=== PATIENT | female | born 1960 | race Caucasian/White ===

== ENCOUNTER 2018-11-01 13:57 | Outpatient (CLI) | payer MEDICARE, MEDICAID, SELFPAY ==
--- NOTE | 2018-11-01 14:00 | DI.RAD_ITS ---
SYMPTOMS/DIAGNOSIS: CHEST PAIN, R07.9, LEFT BUNDLE BRANCH BLOCK, I44.7; NICOTINE DEPENDENCE, F17.200; RIGHT HIP PAIN, M25.551, S/P TWISTING INJURY 5 MOS AGO PA AND LATERAL CHEST: Breast implants are demonstrated. The lungs are free of infiltrate. There is no evidence of a mass or pleural effusion. The cardiovascular structures are intact. There is a mild rotoscoliotic deformity of the dorsolumbar spine. SUMMARY: No evidence of acute cardiopulmonary disease. RIGHT HIP: The bony structures are intact. There are minimal degenerative changes involving the right hip. The pelvic bones appear intact.
[2018-11-01 14:54] LABS: HCT 47.8 % (36.0-46.0); HGB 16.2 g/dL (12.0-15.5); Mean Corp. HGB Concentration 33.9 g/dL (32.0-36.0); Mean Corpuscular Hemoglobin 32.5 pg (27.0-33.0); Mean Platelet Volume 10.2 fL (8.0-11.0); Platelet Count 258 x1000/uL (130-400); RBC 4.98 m/cumm (4.00-5.20); RBC Distribution Width 11.9 % (11.7-14.6)
[2018-11-01 18:15] LABS: ALT 22 U/L (12-78); AST 13 U/L (15-37); Albumin 4.1 g/dL (3.4-5.0); Alkaline Phosphatase 92 U/L (46-116); Anion Gap 10.8 mmol/L (3-11); BUN 8 mg/dL (7-18); Bilirubin, Total 0.8 mg/dL (0.2-1.0); CO2 28.2 mmol/L (21.0-32.0); CREATININE 0.91 mg/dL (0.55-1.02); Calcium 9.4 mg/dL (8.5-10.1); Chloride 100 mmol/L (98-107); Cholesterol 254 mg/dL (50-200); Glucose 99 mg/dL (70-100); HDL Cholesterol 67 mg/dL (40-60); LDL CHOLESTEROL 163 mg/dL (<100); Potassium 4.2 mmol/L (3.5-5.1); Sodium 139 mmol/L (136-145); Triglyceride 74 mg/dL (30-150)
== END 2018-11-01 14:17 ==
PROVIDERS: PCP Nurse Practitioner; Visit Provider Nurse Practitioner
DX: R07.9 Chest pain, unspecified (principal); I44.7 Left bundle-branch block, unspecified; I47.1 Supraventricular tachycardia; F17.200 Nicotine dependence, unspecified, uncomplicated; M16.11 Unilateral primary osteoarthritis, right hip; Z98.82 Breast implant status; M25.551 Pain in right hip
CPT/HCPCS: 36415; 80053; 80061; 83721; 85027; 71046; 73502

== ENCOUNTER 2018-11-05 08:46 | Outpatient (CLI) | payer MEDICARE, MEDICAID, SELFPAY ==
--- NOTE | 2018-11-05 09:30 | MERGEMPI_ITS ---
*[facility]* *[facility]* [address] [place] [address] Myocardial Perfusion Imaging - SPECT Regadenoson Date of study: 11/05/2018 *PATIENT PRESENTATION* Height: 170.2cm (67in) Blood Pressure: Weight: 50kg (110lb) BSA: 1.52m^2 Referring physician: Bony Westbrook Ordering physician: Tayler Kwon Impressions: - Normal perfusion by Tc99m Sestamibi Imaging. - Abnormal contraction consistent with cardiomyopathy. Summary: 1. Myocardial perfusion imaging: No myocardial perfusion defects noted. 2. The calculated left ventricular ejection fraction after stress: 43%. LV global systolic function is mild to moderately reduced. There is dyskinesis involving the septal wall(s) of the left ventricle. 3. Stress ECG conclusions: The stress ECG is indeterminate due to baseline left bundle branch block. Recommendations: Transthoracic echocardiography should be performed in order to evaluate LV function. Indication: R07.9, Appropriate Use Criteria: A (Appropriate). History: REASON FOR VISIT CHEST PAIN. LBBB AND SLEEP APNEA. PT REPORTS INTERMITTENT CHEST PAIN SYMPTOMS FOR THE PAST MONTH. IT OCCUR AT REST AND WITH ACTIVITY. SHE DESCRIBES A BELT SQUEZZING AROUND HER CHEST AND/OR LITTLE TWINGES THAT RADIATE TOWARDS BACK. PMH: Asthma. Risk factors: ACTIVE SMOKER. Family history of coronary artery disease. Current tobacco use. ALLERGIES: BUSPIRONE HCL. HYDROCODONE. METRONIDAZOLE. OXYCODONE. PENICILLINS. SULFA. MEDICATIONS: NICOTINE CARTRIDGE. CLONAZEPAM 0.5 MG DAILY PRN. Imaging Technique: Protocol: Regadenoson. Acquisition: Gated SPECT; 1 day - rest/stress. The patient was imaged in the supine position. Attenuation correction used. Isotope administration: - Rest. Tc[99m]-sestamibi. Dose: 10.3mCi. Injection time: 09:45 AM. Injection to stress time: 00:45. - Stress. Tc[99m]-sestamibi. Dose: 32mCi. Injection time: 11:25 AM. 1-2 min before end of exercise Baseline ECG: SINUS RHYTHM. LBBB. HR 79 BPM. Normal sinus rhythm with left bundle branch block. Stress protocol: +--------+---+ + + !Stage !HR !BP (mmHg) !Comments ! +--------+---+ + + !Baseline!79 !180/105 (130)!BP RECHECKED = 150/82.! +--------+---+ + + !1 min !110!160/80 (107) !Inject Regadenoson. ! +--------+---+ + + !3 min !106!162/78 (106) ! ! +--------+---+ + + !6 min !100!168/86 (113) ! ! +--------+---+ + + * Stress results: The rate-pressure product for the peak heart rate and blood pressure was 27260lb Hg/min. Stress ECG: STRESS TEST ENDED IN 7 MINUTES & 4 SECONDS. HYPERTENSIVE BP AT REST UPON ARRIVAL BP = 180/105. RECHECKED AFTER FEW MINUTES OF REST = 150/82. NORMAL HEART RATE AND BLOOD PRESSURE RESPONSE TO EXERCISE. NO ECTOPY. NO ANGINA. PT REPORTED STOMACH CRAMPING POST LEXISCAN INJECTION. LBBB PRIOR TO AND THROUGHOUT TESTING. NO ST SEGMENTS CHANGES NOTED. The stress ECG is indeterminate due to baseline left bundle branch block. Myocardial perfusion: Imaging information: gated. The image quality was good. Left ventricular size is normal. No myocardial perfusion defects noted. Ventricular Function (Wall Motion): The calculated left ventricular ejection fraction after stress: 43%. LV global systolic function is mild to moderately reduced. There is dyskinesis involving the septal wall(s) of the left ventricle. Study data: Uli Ba MD supervised and was readily available during the procedure. This study was interpreted by [facility]. Study status: Routine. Consent: The risks, benefits, and alternatives to the procedure were explained to the patient and informed consent was obtained. Procedure: Initial setup. A baseline ECG was recorded. Surface ECG leads and manual cuff blood pressure measurements were monitored. Heart sounds: Normal. Lung sounds: Normal. Regadenoson stress test. Stress testing was performed, with regadenoson by intravenous bolus, for a total dose of 0.4mgover 10.00sec, followed by a 5ml saline flush. The infusion was terminated due to per protocol. Study completion: All catheters inserted during the procedure were removed. The patient tolerated the procedure well and was discharged from the lab. Discharge: The patient left the laboratory in stable condition. Birthdate: Patient birthdate: 1960. Sex: Gender: female. Study date: Study date: 11/05/2018. Study time: 00:01 AM. Signature Documentation: - The imaging portion of this study was interpreted by Nuclear Ross Furnace Operator Bony Westbrook MD. - The imaging portion of this study was interpreted by Nuclear Radiologist Jose Manuel Ramos MD. - The Stress ECG portion of this study was interpreted by Bony Westbrook MD. Electronically signed by Bony Westbrook 11/05/2018 13:19
[2018-11-05] MEDS: Regadenoson 0.4 MG/5 ML SYR IVP (11:10)
== END 2018-11-05 09:06 ==
PROVIDERS: PCP Nurse Practitioner; Visit Provider Nurse Practitioner
DX: R07.9 Chest pain, unspecified (principal); I42.9 Cardiomyopathy, unspecified; I44.7 Left bundle-branch block, unspecified; F17.210 Nicotine dependence, cigarettes, uncomplicated; G47.33 Obstructive sleep apnea (adult) (pediatric); Z82.49 Family history of ischemic heart disease and other diseases of the circulatory system
CPT/HCPCS: 78452; 93016; 93018; 93017; J2785

== ENCOUNTER 2018-11-21 00:30 | Outpatient (CLI) | payer MEDICARE, MEDICAID, SELFPAY ==
--- NOTE | 2018-11-21 13:45 | MERGE_ITS ---
*[facility]* *[facility]* [address] [place] [address] Date of study: 11/21/2018 Transthoracic Echocardiography M-mode, complete 2D, complete spectral Doppler, and color Doppler *STUDY CONCLUSIONS* Summary: 1. Left ventricle: The cavity size was normal. Wall thickness was increased in a pattern of moderate LVH. The estimated ejection fraction was 40%. Diffuse hypokinesis. Severe hypokinesis of the septal myocardium. Some parameters suggest diastolic dysfunction. There was no evidence of elevated ventricular filling pressure by Doppler parameters. 2. Ventricular septum: Septal motion showed paradoxical motion consistent with Bundle Branch Block. 3. Mitral valve: There was mild to moderate regurgitation. 4. Right ventricle: The cavity size was normal. Wall thickness was normal. Systolic function was normal. 5. Atrial septum: No defect or patent foramen ovale was identified. 6. Pulmonary arteries: Pulmonary systolic pressure was in the range of 45mm Hg to 55mm Hg. 7. Inferior vena cava: The vessel was patent and dilated. The respirophasic diameter changes were normal; RAP est 5-10 mmHg. *PATIENT PRESENTATION* Height: 170.2cm ((67in) ) S/D Pressure: 128 / 75 Weight: 49.9kg ((109.8lb) ) BSA: 1.52m^2 Test start time: 02:00 PM. Test stop time: 03:00 PM. PERFORMING Unknown PSYCHOLOGIST RESEARCH ASSISTANT RT Andie Clark)(CT), [facility] ORDERING Tayler Kwon REFERRING Tayler Kwon *PROCEDURE DATA* Procedure information: The patient was identified by two identifiers. This study was interpreted by [facility]. Pertinent images and digital data are archived for permanent storage and are available for subsequent review. No prior study was available for comparison. Study status: Routine. Transthoracic echocardiography. M-mode, complete 2D, complete spectral Doppler, and color Doppler. A Transthoracic Echocardiogram was performed. Scanning was performed from the parasternal, apical, subcostal, and suprasternal notch acoustic windows. Images were obtained using an [id number] cardiac ultrasound machine. Image quality was adequate. Study completion: The patient tolerated the procedure well. History: PMH: Chest pain LBBB, tobacco use disorder. I44.7, R07.9, F17.200. *CARDIAC ANATOMY* Left ventricle: The cavity size was normal. Wall thickness was increased in a pattern of moderate LVH. The estimated ejection fraction was 40%. Diffuse hypokinesis. Regional wall motion abnormalities: Severe hypokinesis of the septal myocardium. The tissue Doppler parameters were abnormal. Some parameters suggest diastolic dysfunction. There was no evidence of elevated ventricular filling pressure by Doppler parameters. Aortic valve: Doppler: There was no stenosis. There was no regurgitation. VTI ratio of LVOT to aortic valve: 0.58. Valve area (VTI): 1.8cm^2. Indexed valve area (VTI): 1.2cm^2/m^2. Peak velocity ratio of LVOT to aortic valve: 0.59. Valve area (Vmax): 1.8cm^2. Indexed valve area (Vmax): 1.2cm^2/m^2. Mean velocity ratio of LVOT to aortic valve: 0.52. Valve area (Vmean): 1.6cm^2. Indexed valve area (Vmean): 1cm^2/m^2. Mean gradient (S): 5.8mm Hg. Peak gradient (S): 11.3mm Hg. Aorta: Aortic root: The aortic root was normal in size. Ascending aorta: The ascending aorta was normal in size. Mitral valve: Mildly thickened leaflets. Doppler: There was no evidence for stenosis. There was mild to moderate regurgitation. Valve area by pressure half-time: 2.9cm^2. Indexed valve area by pressure half-time: 1.9cm^2/m^2. Left atrium: The atrium was normal in size. Atrial septum: No defect or patent foramen ovale was identified. Right ventricle: The cavity size was normal. Wall thickness was normal. Systolic function was normal. Ventricular septum: Septal motion showed paradoxical motion consistent with Bundle Branch Block. Pulmonic valve: Doppler: There was no evidence for stenosis. There was mild regurgitation. Tricuspid valve: Doppler: There was mild regurgitation. Pulmonary artery: Poorly visualized. Pulmonary systolic pressure was in the range of 45mm Hg to 55mm Hg. Right atrium: The atrium was normal in size. Pericardium: There was no pericardial effusion. Systemic veins: Inferior vena cava: Well visualized. The vessel was patent and dilated. The respirophasic diameter changes were normal; RAP est 5-10 mmHg. Measurements Left ventricle Value Reference LV ID, ED, PLAX 4.6 cm 3.5 - 6.0 LV ID, ES, PLAX 3.9 cm 2.1 - 4.0 LV PW thickness, ED, PLAX 1.1 cm LV end-diastolic volume, 1-p A2C 91 ml LV ejection fraction, 1-p A2C 40 % LV end-diastolic volume, 1-p A4C 93 ml LV ejection fraction, 1-p A4C 40 % LV e', lateral 0.099 m/sec LV E/e', lateral 5 LV e', medial 0.063 m/sec LV E/e', medial 8 LV e', average 0.081 m/sec LV E/e', average 7 Ventricular septum Value Reference IVS thickness, ED, PLAX 1.4 cm LVOT Value Reference LVOT ID, A-P 2.0 cm LVOT area 3.1 cm^2 LVOT peak velocity, S 0.99 m/sec LVOT mean velocity, S 0.6 m/sec LVOT VTI, S 20.3 cm LVOT peak gradient, S 3.9 mm Hg LVOT mean gradient, S 1.8 mm Hg Stroke volume (SV), LVOT DP 62 ml Stroke index (SV/bsa), LVOT DP 41 ml/m^2 Aortic valve Value Reference Aortic valve peak velocity, S 1.7 m/sec Aortic valve mean velocity, S 1.15 m/sec Aortic valve VTI, S 35.0 cm Aortic mean gradient, S 5.8 mm Hg Aortic peak gradient, S 11.3 mm Hg VTI ratio, LVOT/AV 0.58 Aortic valve area, VTI 1.8 cm^2 Velocity ratio, peak, LVOT/AV 0.59 Aortic valve area, peak velocity 1.8 cm^2 Velocity ratio, mean, LVOT/AV 0.52 Aortic valve area, mean velocity 1.6 cm^2 Aortic valve area/bsa, mean velocity 1 cm^2/m^2 Aorta Value Reference Aortic root ID, ED 2.8 cm Ascending aorta ID, A-P, S 2.7 cm Left atrium Value Reference LA ID, A-P, ES 2.6 cm LA ID/bsa, A-P 1.7 cm/m^2 <=2.2 LA area, ES, A4C 13.1 cm^2 8.8 - 23.4 LA area, ES, A2C 17 cm^2 LA volume/bsa, ES, 1-p A4C 19 ml/m^2 LA volume, ES, 2-p 32 ml LA volume/bsa, ES, 2-p 21 ml/m^2 LA/aortic root ratio 0.94 Mitral valve Value Reference Mitral E-wave peak velocity 0.53 m/sec Mitral A-wave peak velocity 0.73 m/sec Mitral deceleration time (H) 262 ms 150 - 230 Mitral pressure half-time 76 ms Mitral E/A ratio, peak 0.73 Mitral valve area, PHT, DP 2.9 cm^2 Pulmonary veins Value Reference Pulmonary vein peak velocity, S 0.63 m/sec Pulmonary vein peak velocity, D 0.44 m/sec Pulmonary vein velocity ratio, peak, 1.42 S/D Pulmonary vein A-wave reversal peak 0.36 m/sec velocity Tricuspid valve Value Reference Tricuspid regurg peak velocity 3.3 m/sec Tricuspid peak RV-RA gradient 44.6 mm Hg Right atrium Value Reference RA area, ES, A4C 11 cm^2 8.3 - 19.5 Legend: (L) and (H) lawrence values outside specified reference range. I have personally reviewed the images and have reviewed and edited the reported findings. Electronically signed by Uli Ba MD 11/21/2018 16:49
== END 2018-11-21 00:50 ==
PROVIDERS: PCP Nurse Practitioner; Visit Provider Nurse Practitioner
DX: F17.200 Nicotine dependence, unspecified, uncomplicated (principal); I44.7 Left bundle-branch block, unspecified; R07.9 Chest pain, unspecified; I42.9 Cardiomyopathy, unspecified; I34.0 Nonrheumatic mitral (valve) insufficiency
CPT/HCPCS: 93306

== ENCOUNTER 2019-08-27 08:33 | Outpatient (CLI) | payer MEDICARE, MEDICAID, SELFPAY | END 2019-08-27 08:53 | PROVIDERS: PCP Nurse Practitioner; Visit Provider Internal Medicine Cardiovascular Disease | DX: I42.8 Other cardiomyopathies (principal) | CPT/HCPCS: 99203; 99214; 93005; 93010 ==

== ENCOUNTER → 2019-10-07 13:07 | Outpatient (BNVA) | payer MEDICARE, MEDICAID, SELFPAY | PROVIDERS: PCP Nurse Practitioner; Referring Provider Nurse Practitioner; Visit Provider Internal Medicine Cardiovascular Disease | DX: I42.8 Other cardiomyopathies (principal); I44.7 Left bundle-branch block, unspecified; F17.210 Nicotine dependence, cigarettes, uncomplicated | CPT/HCPCS: 99212; G2012 ==

== ENCOUNTER → 2020-01-06 09:59 | Outpatient (BNVA) | payer MEDICARE, MEDICAID, SELFPAY | PROVIDERS: PCP Nurse Practitioner; Referring Provider Nurse Practitioner; Visit Provider Internal Medicine Cardiovascular Disease | DX: I42.8 Other cardiomyopathies (principal); I44.7 Left bundle-branch block, unspecified; I51.7 Cardiomegaly; E78.5 Hyperlipidemia, unspecified | CPT/HCPCS: 99214 ==

== ENCOUNTER → 2020-04-14 09:20 | Outpatient (BNVA) | payer MEDICARE, MEDICAID, SELFPAY | PROVIDERS: PCP Nurse Practitioner; Referring Provider Nurse Practitioner; Visit Provider Internal Medicine Cardiovascular Disease | DX: I44.7 Left bundle-branch block, unspecified (principal); I42.8 Other cardiomyopathies; F17.210 Nicotine dependence, cigarettes, uncomplicated | CPT/HCPCS: 99213 ==

== ENCOUNTER 2021-05-20 14:01 | Outpatient (REF) | payer MEDICARE, MEDICAID, SELFPAY | END 2021-05-20 14:02 | disposition home or self-care (01) | LOC: LBN 14:01 | PROVIDERS: PCP Nurse Practitioner; Visit Provider Nurse Practitioner | DX: R35.0 Frequency of micturition (principal) | CPT/HCPCS: 87077; 87086; 87186 ==

== ENCOUNTER 2021-07-08 03:15 | Outpatient (CLI) | payer MEDICARE, MEDICAID, SELFPAY ==
[2021-07-08 12:50] LABS: Abs Immature Grans 0.03 10^3/uL (0.0-0.06); Absolute Basophil Count 0.06 10^3/uL (0.0-0.2); Absolute Eosinophil Count 0.18 10^3/uL (0.0-0.7); Absolute Lymphocyte Count 2.73 10^3/uL (1.2-3.4); Absolute Monocyte Count 0.45 10^3/uL (0.1-0.8); Absolute Neutrophil Count 5.84 10^3/uL (1.2-6.7); Basophils % 0.6; Eosinophils % 1.9; HCT 45.5 % (36.0-46.0); HGB 15.2 g/dL (11.2-15.7); Immature Grans % 0.3; Lymphocytes % 29.4; MCH 32.2 pg (27.0-33.0); MCHC 33.4 % (32.0-36.0); MCV 96.4 fL (80-95); MPV 9.7 fL (8.0-11.0); Monocytes % 4.8; Nucleated RBC 0 %; Platelet Count 298 10^3/uL (130-400); RBC 4.72 10^6/uL (3.93-5.22); RDW 11.8 % (11.7-14.6); RDW-SD 42.3 fL; WBC 9.29 10^3/uL (4.4-10.8)
[2021-07-08 13:32] LABS: Hemoglobin A1C 5.3 % (<5.7)
[2021-07-08 13:55] LABS: Vitamin D 25 Total 27.6 ng/mL (30-100)
[2021-07-08 14:07] LABS: ALT 19 U/L (14-59); AST 10 U/L (15-37); Albumin 4.2 g/dL (3.4-5.0); Alkaline Phosphatase 89 U/L (46-116); Anion Gap 7.4 mmol/L (3-11); BUN 9 mg/dL (7-18); Bilirubin, Total 0.7 mg/dL (0.2-1.0); CO2 31.6 mmol/L (21.0-32.0); CREATININE 0.8 mg/dL (0.55-1.02); Calcium 9.3 mg/dL (8.5-10.1); Calculated LDL 163 mg/dL (<100); Chloride 100 mmol/L (98-107); Cholesterol 249 mg/dL (<200); Folate 7.1 ng/mL (8.6-20.0); Glucose 88 mg/dL (74-106); HDL Cholesterol 66 mg/dL (40-60); Potassium 4.4 mmol/L (3.5-5.1); Sodium 139 mmol/L (136-145); Total Protein 7.1 g/dL (6.4-8.2); Triglyceride 101 mg/dL (<150); Vitamin B12 325 pg/mL (193-986)
[2021-07-09 10:30] LABS: Homocysteine 17.4 umol/L (5.0-13.9)
[2021-07-09 10:33] LABS: HBs Antibody, Quant <3.1 mIU/mL (See Note); Hepatitis B Surface Ab Negative (See Note)
[2021-07-09 11:27] LABS: Hepatitis C Ab w Rflx HCV PCR Negative (Negative)
[2021-07-09 12:07] LABS: Hep A Total Ab w Rflx IgM Negative (Negative)
[2021-07-09 13:21] LABS: EBNA IgG Negative (Negative); EBV Interpretation (See Note); VCA IgG Positive (Negative); VCA IgM Negative (Negative)
[2021-07-10 12:42] LABS: Lipoprotein (a) 31 nmol/L (<75)
[2021-07-11 13:58] LABS: CMV Ab, IgM Negative (Negative); EBV EA IgG Negative (Negative)
[2021-07-12 19:36] LABS: Zinc, Serum 0.78 mcg/mL (0.66-1.10)
[2021-07-13 14:59] LABS: Free Retinol (Vitamin A) 47.1 mcg/dL (32.5-78.0)
== END 2021-07-08 03:16 | disposition home or self-care (01) ==
LOC: LBO 03:15
PROVIDERS: PCP Nurse Practitioner; Visit Provider Naturopath
DX: E78.5 Hyperlipidemia, unspecified (principal); E55.9 Vitamin D deficiency, unspecified; R25.2 Cramp and spasm; G93.3 Postviral and related fatigue syndromes; R17 Unspecified jaundice
CPT/HCPCS: 36415; 80053; 80061; 82306; 83090; 83695; 86663; 86706; 86709; 86803; 82607; 82746; 83036; 83735; 84590; 84630; 85025; 86644; 86645; 86664; 86665